=== PATIENT | male | born 1965 | race Caucasian/White ===

== ENCOUNTER 2021-09-14 15:49 | Emergency (ER) | payer OTHER ==
[2021-09-14] MEDS ORDERED: LIDOCAINE 1% 20 ML MDV ONE (16:15)
[2021-09-14] MEDS ORDERED: BUPIVACAINE 0.5% PF 10 ML VIAL ONE (17:13)
--- NOTE | 2021-09-14 17:46 | ER ---
Nurse's Notes [facility] Name: Israel Bell Age: 55 yrs Sex: Male : 1965 Arrival Date: 09/14/2021 Time: 16:00 Bed 27 Private MD: Diagnosis: Laceration of the Left Proximal Leg Presentation: 09/14 16:00 Chief complaint: Patient states: I was at work - in a crawl space and I cut my left ld1 groin on a medal plate. Coronavirus screen: At this time, the client does not indicate any symptoms associated with coronavirus-19. Ebola Screen: No symptoms or risks identified at this time. Complicating Factors: There are no complicating factors for this patient. Initial Sepsis Screen: Does the patient meet any 2 criteria? No. Patient's initial sepsis screen is negative. Does the patient have a suspected source of infection? No. Patient's initial sepsis screen is negative. Risk Assessment: Do you want to hurt yourself or someone else? Patient reports no desire to harm self or others. Onset of symptoms was September 14, 2021. 16:00 Method Of Arrival: Ambulatory ld1 16:00 Acuity: [facility] 4 ld1 Triage Assessment: 16:02 General: Appears in no apparent distress. comfortable, Behavior is calm, cooperative, ld1 appropriate for age. Pain: Denies pain. EENT: No signs and/or symptoms were reported regarding the EENT system. Neuro: Level of Consciousness is awake, alert, obeys commands, Oriented to person, place, time, situation. Cardiovascular: Capillary refill < 3 seconds Patient's skin is warm and dry. Respiratory: Airway is patent Respiratory effort is even, unlabored, Respiratory pattern is regular, symmetrical. GI: Abdomen is flat, non-distended. : No signs and/or symptoms were reported regarding the genitourinary system. Derm: No signs and/or symptoms reported regarding the dermatologic system. Musculoskeletal: No signs and/or symptoms reported regarding the musculoskeletal system. Injury Description: Laceration sustained to left groin. Historical: - Allergies: 16:02 No Known Allergies; ld1 - Home Meds: 16:02 amlodipine oral [Active]; Lovastatin Oral [Active]; levothyroxine oral [Active]; ld1 - PMHx: 16:02 Hypothyroidism; Hypertensive disorder; Hypercholesterolemia; ld1 - PSHx: 16:02 None; ld1 - Immunization history:: Adult Immunizations up to date, Client reports receiving the 2nd dose of the Covid vaccine. - Social history:: Smoking status: Patient denies any tobacco usage or history of. Patient/guardian denies using alcohol. Screenin:08 Abuse screen: Denies threats or abuse. Denies injuries from another. Nutritional ld1 screening: No deficits noted. Tuberculosis screening: No symptoms or risk factors identified. Fall Risk None identified. Assessment: 16:08 Reassessment: See triage assessment. ld1 16:55 Reassessment: Patient appears in no apparent distress at this time. Patient is alert, ld1 oriented x 3, equal unlabored respirations, skin warm/dry/pink. 17:07 Reassessment: ERP at bedside providing care. ld1 17:58 Injury Description: Laceration is clean. ld1 Vital Signs: 16:00 BP 125 / 79; Pulse 93; Resp 18; Temp 98.3(TE); Pulse Ox 95% on R/A; Weight 90.72 kg; ld1 Height 5 ft. 11 in. (180.34 cm); Pain 0/10; 16:55 BP 131 / 85; Pulse 89; Resp 18; Pulse Ox 99% on R/A; ld1 16:00 Body Mass Index 27.89 (90.72 kg, 180.34 cm) ld1 ED Course: 16:00 Patient arrived in ED. ld1 16:00 Breezy Hope PA is PHCP. [facility] 16:00 Barrie Kaur MD is Attending Physician. [facility] 16:02 Triage completed. ld1 16:07 Maren Orellana, SUM[facility] is Primary Nurse. ld1 16:08 Arm band placed on right wrist. ld1 16:08 Patient has correct armband on for positive identification. Placed in gown. Bed in low ld1 position. Call light in reach. Side rails up X2. ekg monitor tech on. Pulse ox on. NIBP on. Door closed. Noise minimized. Warm blanket given. 16:08 No provider procedures requiring assistance completed. ld1 17:58 Patient did not have IV access during this emergency room visit. ld1 Administered Medications: 16:54 Drug: Lidocaine (1 %) 20 ml {Note: Administed by LATISHA Espino..} Volume: 20 ml; ld1 Route: Infiltration; 17:56 Drug: Tetanus-Diphtheria Toxoid Adult 0.5 ml {Vial Gauger: [employer]. Exp: ld1 08/19/2023. Lot #: [id number]. } Route: IM; Site: right deltoid; 17:57 Follow up: Response: No adverse reaction ld1 Outcome: 17:45 Discharge ordered by . bj 17:57 Discharged to home via wheelchair. ld1 17:57 Condition: stable 17:57 Discharge instructions given to patient, Instructed on discharge instructions, follow up and referral plans. medication usage, Demonstrated understanding of instructions, follow-up care, medications, Prescriptions given X 1. 17:58 Patient left the ED. ld1 Signatures: Breezy Hope PA PA jmm Dibbern, Lauren, RN RN ld1
--- NOTE | 2021-09-14 17:46 | EDPHYS ---
Physician Documentation [facility] Name: Israel Bell Age: 55 yrs Sex: Male : 1965 Arrival Date: 09/14/2021 Time: 16:00 Bed 27 Private MD: ED Physician Barrie Kaur HPI: 09/14 16:01 This 55 yrs old Male presents to ER via Ambulatory with complaints of Laceration. jmm 16:01 The patient presents with an injury, a laceration, a penetrating injury. Onset: The jmm symptoms/episode began/occurred acutely, just prior to arrival. Modifying factors: The symptoms are alleviated by nothing. the symptoms are aggravated by nothing. Associated signs and symptoms: Pertinent negatives calf tenderness, fever, swelling, tingling, vomiting. This is a 55-year-old male with history of hypothyroidism, hypertension, hyperlipidemia the presents emerged department with a large laceration to the left thigh after slipping and falling on a metal grate. Patient denies other injury. Most recent tetanus immunization was in 2016. Historical: - Allergies: 16:02 No Known Allergies; ld1 - Home Meds: 16:02 amlodipine oral [Active]; Lovastatin Oral [Active]; levothyroxine oral [Active]; ld1 - PMHx: 16:02 Hypothyroidism; Hypertensive disorder; Hypercholesterolemia; ld1 - PSHx: 16:02 None; ld1 - Immunization history:: Adult Immunizations up to date, Client reports receiving the 2nd dose of the Covid vaccine. - Social history:: Smoking status: Patient denies any tobacco usage or history of. Patient/guardian denies using alcohol. ROS: 16:01 Constitutional: Negative for fever, chills, and weight loss, Cardiovascular: Negative jmm for chest pain, palpitations, and edema, Respiratory: Negative for shortness of breath, cough, wheezing, and pleuritic chest pain. 16:01 MS/extremity: Positive for injury or acute deformity, laceration, pain. 16:01 All other systems are negative. Exam: 16:01 Constitutional: This is a well developed, well nourished patient who is awake, alert, jmm and in no acute distress. Head/Face: atraumatic. Eyes: EOMI, no conjunctival erythema appreciated ENT: Moist Mucus Membranes Neck: Trachea midline, Supple Chest/axilla: Normal chest wall appearance and motion. Cardiovascular: Regular rate and rhythm. No edema appreciated Respiratory: Normal respirations, no respiratory distress appreciated Abdomen/GI: Non distended, soft Back: Normal ROM 16:01 Skin: 8 cm laceration noted to the left proximal thigh. 16:01 Neuro: Orientation: is normal, Mentation: is normal, Memory: is normal. 16:01 Psych: Behavior/mood is pleasant, cooperative. Vital Signs: 16:00 BP 125 / 79; Pulse 93; Resp 18; Temp 98.3(TE); Pulse Ox 95% on R/A; Weight 90.72 kg; ld1 Height 5 ft. 11 in. (180.34 cm); Pain 0/10; 16:55 BP 131 / 85; Pulse 89; Resp 18; Pulse Ox 99% on R/A; ld1 16:00 Body Mass Index 27.89 (90.72 kg, 180.34 cm) ld1 Laceration: 17:43 Wound Repair of 8cm ( 3.1in ) subcutaneous laceration to medial aspect of left thigh. jmm Distal neuro/vascular/tendon intact. Anesthesia: Local anesthetic administered with 20 mls of Lido/Marcaine. Wound prep: Extensive cleansing with betadine by mi, Copious irrigation. Skin closed with 11 3-0 Prolene using simple sutures and sterile technique. Patient tolerated well. MDM: 16:03 Patient medically screened. bj 17:44 Data reviewed: vital signs, nurses notes. Counseling: I had a detailed discussion with bj the patient and/or guardian regarding: the historical points, exam findings, and any diagnostic results supporting the discharge/admit diagnosis, the need for outpatient follow up, to return to the emergency department if symptoms worsen or persist or if there are any questions or concerns that arise at home. ED course: Patient given wound infection return precautions. Patient is neurovascularly intact in the left leg, full dorsalis pedis pulse appreciated, compartments are soft, neurovascular intact.. Administered Medications: 16:54 Drug: Lidocaine (1 %) 20 ml {Note: Administed by PA. Kenzie.} Volume: 20 ml; ld1 Route: Infiltration; 17:56 Drug: Tetanus-Diphtheria Toxoid Adult 0.5 ml {Freight Engineer: [employer]. Exp: ld1 08/19/2023. Lot #: [id number]. } Route: IM; Site: right deltoid; 17:57 Follow up: Response: No adverse reaction ld1 Disposition: 18:02 Co-signature as Attending Physician, Barrie Kaur MD I agree with the assessment and kdr plan of care. Disposition Summary: 09/14/21 17:45 Discharge Ordered Location: Home [facility] Condition: Stable [facility] Diagnosis - Laceration of the Left Proximal Leg [facility] Followup: [facility] - With: Private Physician - When: 10 - 14 days - Reason: Recheck today's complaints, Continuance of care, Staple/Suture removal, Re-evaluation by your physician Discharge Instructions: - Discharge Summary Sheet [facility] - Laceration Care, Adult [facility] Forms: - Medication Reconciliation Form [facility] - Thank You Letter [facility] - Antibiotic Education [facility] - Prescription Opioid Use [facility] Prescriptions: - Doxycycline Hyclate 100 mg Oral Tablet - take 1 tablet by ORAL route every 12 hours; 20 tablet; Refills: 0, Product [facility] Selection Permitted Signatures: Barrie Kaur MD MD [facility] Breezy Hope PA PA [facility] Maren Orellana, RN RN ld1
[2021-09-14] MEDS ORDERED: TETANUS & DIPHTHERIA TOX,ADULT 0.5 ML VIAL ONE (17:56)
[2021-09-14 21:20] VITALS: TEMP 98.3
[2021-09-14 21:22] VITALS: BP 131/85; O2SAT 99
== END 2021-09-14 17:58 | disposition home or self-care (01) ==
LOC: EDSEX 15:49 → ER 15:49
PROC: 0JQM0ZZ Repair Left Upper Leg Subcutaneous Tissue and Fascia, Open Approach (ICD-10-PCS; principal; 2021-09-14)
DX: S71.112A Laceration without foreign body, left thigh, initial encounter (principal); W01.118A Fall on same level from slipping, tripping and stumbling with subsequent striking against other sharp object, initial encounter; E03.9 Hypothyroidism, unspecified; E78.00 Pure hypercholesterolemia, unspecified; I10 Essential (primary) hypertension; Z23 Encounter for immunization
CPT/HCPCS: 90471; 90714; 99284